=== PATIENT | female | born 1955 | race Caucasian/White ===

== ENCOUNTER 2016-12-21 14:44 | Emergency (ER) ==
[2016-12-21 14:48] VITALS: BP 121/79; TEMP 96.4; BMI 30.2
--- NOTE | 2016-12-21 15:08 | ED.PDOC ---
General ED Provider: Dr. YANNICK CUELLAR Chief Complaint: Rash Stated Complaint: rash Time Seen by Physician: 15:00 Mode of Arrival: Walk-In Information Source: Patient Exam Limitations: No limitations Primary [facility] T[facility] Documentation Reviewed and Agree: Yes Skin Complaint Exam - Skin Rash/Itching Complaint/Exam Onset/Duration: itching dorsal left hand Symptoms Are: Still present Initial Severity: Mild Current Severity: Mild (see photo) Location: left hand Aggravating: Reports: None Alleviating: Reports: None Differential Diagnoses: Allergic Reaction, Contact Dermatitis Review of Systems - Review Of Systems Constitutional: Reports: No symptoms Eyes: Reports: No symptoms Ears, Nose, Mouth, Throat: Reports: No symptoms Respiratory: Reports: No symptoms Cardiac: Reports: No symptoms GI: Reports: No symptoms : Reports: No symptoms Musculoskeletal: Reports: No symptoms Skin: Reports: Rash (left hand ) Neurological: Reports: No symptoms Endocrine: Reports: No symptoms Hematologic/Lymphatic: Reports: No symptoms All Other Systems: Reviewed and Negative Past Medical History - Past Medical History Previously Healthy: Yes Endocrine: Reports: None Cardiovascular: Reports: None Respiratory: Reports: None Hematological: Reports: None Gastrointestinal: Reports: None Genitourinary: Reports: None Neuro/Psych: Reports: None Musculoskeletal: Reports: None Cancer: Reports: None Last Menstrual Period: none - Surgical History General Surgical History: Reports: None - Family History Family History: Reports: None - Social History Smoking Status: Current every day smoker, Light tobacco smoker Hx Substance Use: No Alcohol Screening: None Physical Exam - Physical Exam Appearance: Well-appearing, No pain distress, Well-nourished Eyes: HAILEE, EOMI, Conjunctiva clear ENT: Ears normal, Nose normal, Oropharynx normal Respiratory: Airway patent, Breath sounds clear, Breath sounds equal, Respirations nonlabored Cardiovascular: RRR, Pulses normal, No rub, No murmur GI/: Soft, Nontender, No masses, Bowel sounds normal, No Organomegaly Musculoskeletal: Normal strength, ROM intact, No edema, No calf tenderness Skin: Warm, Dry (right hand dorsal right hand ) Neurological: Sensation intact, Motor intact, Reflexes intact, Cranial nerves intact, Alert, Oriented Psychiatric: Affect appropriate, Mood appropriate Critical Care Note - Critical Care Note Total Time (mins): 0 Course - Course Vital Signs: Temp Pulse Resp BP Pulse Ox 12/21/16 14:44 96.4 F L 74 18 121/79 96 Departure - Departure Time of Disposition: 15:07 (seen with trino at all times photos submitted ) Disposition: HOME SELF-CARE Discharge Problem: Pruritic rash, Cellulitis of right hand Instructions: Cellulitis (ED) Condition: Good Pt referred to PMD for follow-up: No Additional Instructions: Please call your Family Physician as soon as possible to schedule a follow-up appointment. Prescriptions: Amoxicillin/Potassium Clav [Augmentin 875-125 mg Tab] 1 tab PO Q12HR #14 tablet Allergies/Adverse Reactions: Allergies No Known Allergies Allergy (Verified 12/21/16 14:48) Home Medications: Ambulatory Orders Amoxicillin/Potassium Clav [Augmentin 875-125 mg Tab] 1 tab PO Q12HR #14 tablet 12/21/16 Disposition Discussed With: Patient
== END 2016-12-21 15:16 | disposition home or self-care (01) ==
LOC: ED 14:44
DX: R21 Rash and other nonspecific skin eruption (principal); L29.9 Pruritus, unspecified; L03.114 Cellulitis of left upper limb; F17.210 Nicotine dependence, cigarettes, uncomplicated
CPT/HCPCS: 99282

== ENCOUNTER 2017-01-11 14:18 | Outpatient (CLI) | END 2017-01-11 14:19 | disposition home or self-care (01) | LOC: LAB 14:18 | PROVIDERS: ATTEND Nurse Practitioner Family | DX: J01.90 Acute sinusitis, unspecified (principal) | CPT/HCPCS: 87651; 87880 ==

== ENCOUNTER 2017-08-26 05:35 | Emergency (ER) ==
[2017-08-26 05:35] VITALS: BMI 30.2
[2017-08-26 05:44] VITALS: BP 109/69; TEMP 96.8
[2017-08-26] MEDS ORDERED: SOLU-MEDROL 125 MG IM STA (06:11)
[2017-08-26] MEDS ORDERED: CLARITIN PO STA (06:12)
--- NOTE | 2017-08-26 06:15 | ED.PDOC ---
General ED Provider: Dr. CLAUDETTE RODRIGUEZ Chief Complaint: Rash Stated Complaint: Manisha is a 61 year old female who states that she has had a rash on the hands wrist neck and round her eyes for afew days. Started she thinks after getting into the weeds. Had similar symtoms last year which was sucessfully treated with steroids. Time Seen by Physician: 06:13 Mode of Arrival: Walk-In Information Source: Patient Exam Limitations: No limitations Primary Care [facility] and Triage Documentation Reviewed and Agree: Yes Skin Complaint Exam - Skin Rash/Itching Complaint/Exam Onset/Duration: 4 days Location: hands, wrist, Neck Periobital areas bilaterally Potential Exposures: Reports: Plants Prior Treatment: BENADRYL CREAM, CORTISONE CREAM, WARM RAGS Aggravating: Reports: None Alleviating: Denies: OTC creams/salves (tried BENADRYL CREAM, CORTISONE CREAM, WARM RAGS with no help), Cool compresses Associated Signs and Symptoms: Denies: Difficulty breathing, Fever, Chills Related History: Similar episode Skin Findings: Present: Urticaria Differential Diagnoses: Eczema, Poison [place] Review of Systems - Review Of Systems Constitutional: Reports: No symptoms Eyes: Reports: No symptoms Ears, Nose, Mouth, Throat: Reports: No symptoms Respiratory: Reports: No symptoms Cardiac: Reports: No symptoms GI: Reports: No symptoms : Reports: No symptoms Musculoskeletal: Reports: No symptoms Skin: Reports: Rash Neurological: Reports: Anxiety Endocrine: Reports: No symptoms Hematologic/Lymphatic: Reports: No symptoms All Other Systems: Reviewed and Negative Past Medical History - Past Medical History Previously Healthy: Yes Endocrine: Reports: None Cardiovascular: Reports: None Respiratory: Reports: None Hematological: Reports: None Gastrointestinal: Reports: None Genitourinary: Reports: None Neuro/Psych: Reports: None Musculoskeletal: Reports: None Cancer: Reports: None Last Menstrual Period: PT HAS HAD A HYSTERECTOMY - Surgical History General Surgical History: Reports: None - Family History Family History: Reports: None - Social History Smoking Status: Current every day smoker, Heavy tobacco smoker Hx Substance Use: No Alcohol Screening: None - Immunizations Tetanus Shot up to Date: Yes Physical Exam - Physical Exam Appearance: Obese Neck: Supple Respiratory: Airway patent, Breath sounds clear, Breath sounds equal, Respirations nonlabored Cardiovascular: RRR, Pulses normal, No rub, No murmur Skin: Warm, Dry Neurological: Sensation intact, Alert, Oriented Psychiatric: Anxious Critical Care Note - Critical Care Note Total Time (mins): 0 Course - Course Orders, Labs, Meds: Orders Category Date Time Status Loratadine [Claritin] MEDS 08/26/17 06:12 Stat 10 mg PO NOW STA Methylprednisolone Sod Succ/Pf [Solu-Medrol 125 mg] MEDS 08/26/17 06:11 Stat 125 mg IM ONCE STA Vital Signs: Temp Pulse Resp BP Pulse Ox 08/26/17 05:35 96.8 F L 80 16 109/69 95 Departure - Departure Time of Disposition: 06:18 Disposition: HOME SELF-CARE Discharge Problem: Contact dermatitis and eczema Eczema Qualifiers: Eczema type: unspecified Qualified Code(s): L30.9 - Dermatitis, unspecified Instructions: Eczema (ED), Contact Dermatitis (ED) Condition: Fair Pt referred to PMD for follow-up: Yes Additional Instructions: Take Medications as prescribed Follow up with PCP in 3 days Avoid poison IV/[place] Prescriptions: Methylprednisolone [Medrol Dosepak] 4 mg PO DIRECTED #1 pkg Allergies/Adverse Reactions: Allergies No Known Allergies Allergy (Verified 08/26/17 05:44) Home Medications: Ambulatory Orders Methylprednisolone [Medrol Dosepak] 4 mg PO DIRECTED #1 pkg 08/26/17 Disposition Discussed With: Patient
== END 2017-08-26 06:25 | disposition home or self-care (01) ==
LOC: ED 05:35
DX: L30.9 Dermatitis, unspecified (principal); F17.210 Nicotine dependence, cigarettes, uncomplicated
CPT/HCPCS: 96372; 99282

== ENCOUNTER 2018-03-28 09:44 | Observation (INO) | payer MEDICAID, OTHER ==
--- NOTE | 2018-03-28 11:48 | ED.PDOC ---
General ED Provider: Dr. YANNICK CUELLAR Chief Complaint: Chest Pain Stated Complaint: chest pain Time Seen by Physician: 10:00 Mode of Arrival: Walk-In Information Source: Patient Exam Limitations: No limitations Primary Care Provider: [facility] T[facility] Documentation Reviewed and Agree: Yes Reviewed sepsis parameters & appropriate labs ordered?: Yes System Inflammatory Response Syndrome: Not Applicable Sepsis Protocol: For patient's 13 years and over: Temp is 96.8 and below OR 101 and greater Pulse >90 BPM Resp >20/minute Acutely Altered Mental Status Are patient's symptoms suggestive of a new infection, such as: -Pneumonia -Skin, Soft Tissue -Endocarditis -UTI -Bone, Joint Infection -Implantable Device -Acute Abdominal Infection -Wound Infection -Meningitis -Blood Stream Catheter Infection -Unknown System Inflammatory Response Syndrome: Not Applicable Cardiovascular Complaint Exam - Chest Pain Complaint/Exam Onset: Gradual Duration: 2 days Symptoms Are: Still present Timing: Intermittent Initial Severity: Moderate Current Severity: Moderate Location: Reports: Midsternal Pain Radiates: Reports: Back Character: Reports: Dull, Aching Aggravating: Reports: None Alleviating: Reports: None Associated Signs and Symptoms: Reports: Back pain. Denies: Diaphoresis, Nausea , Vomiting, Fever, Palpitations, Cough, Hemoptysis, Abdominal pain, Dizziness, Short of air, Calf pain, Calf swelling Related History: Reports: Similar episode Related Surgical History: Reports: None History of Healthcare-Acquired Pneumonia: Reports: No AMI/ACS Risk Factors: Reports: None TAD Risk Factors: Reports: None Pulmonary Embolism Risk Factors: Reports: None Prior Care for this Complaint: No Recent Stress Test: No Recent Echo/LV Function: No JVD Present: No Subcutaneous Emphysema Present: No Diminshed Breath Sounds: No Reproducible Chest Wall Pain: No Bilateral Pulses Present: No Unequal Pulses Noted: No If Risk Factors for AMI/ACS Consider: EKG, Cardiac Enzymes Differential Diagnoses: ACS, Stable Angina Quality Indicators For Acute RI or Cardiac Chest Pain: EKG in 10min. Review of Systems - Review Of Systems Constitutional: Reports: No symptoms Eyes: Reports: No symptoms Ears, Nose, Mouth, Throat: Reports: No symptoms Respiratory: Reports: No symptoms Cardiac: Reports: Chest pain GI: Reports: No symptoms : Reports: No symptoms Musculoskeletal: Reports: No symptoms Skin: Reports: No symptoms Neurological: Reports: No symptoms Endocrine: Reports: No symptoms Hematologic/Lymphatic: Reports: No symptoms All Other Systems: Reviewed and Negative Past Medical History - Past Medical History Previously Healthy: Yes Endocrine: Reports: None Cardiovascular: Reports: None Respiratory: Reports: None Hematological: Reports: None Gastrointestinal: Reports: None Genitourinary: Reports: None Neuro/Psych: Reports: None Musculoskeletal: Reports: None Cancer: Reports: None Last Menstrual Period: unknown - Surgical History General Surgical History: Reports: None - Family History Family History: Reports: None - Social History Smoking Status: Current every day smoker, Heavy tobacco smoker Hx Substance Use: No Alcohol Screening: None Physical Exam - Physical Exam Appearance: Well-appearing, No pain distress, Well-nourished Eyes: HAILEE, EOMI, Conjunctiva clear ENT: Ears normal, Nose normal, Oropharynx normal Respiratory: Airway patent, Breath sounds clear, Breath sounds equal, Respirations nonlabored Cardiovascular: RRR, Pulses normal, No rub, No murmur GI/: Soft, Nontender, No masses, Bowel sounds normal, No Organomegaly Musculoskeletal: Normal strength, ROM intact, No edema, No calf tenderness Skin: Warm, Dry, Normal color Neurological: Sensation intact, Motor intact, Reflexes intact, Cranial nerves intact, Alert, Oriented Psychiatric: Affect appropriate, Mood appropriate Interpretation - Hris Administrator Rate: Normal Rhythm: Sinus Ectopy: None - EKG Interpretation Rate: Normal Rhythm: Sinus Ectopy: None [place]: NL ST Segment: Normal Re-Evaluation - Re-Evaluation Time of Re-Evaluation: 10:20 Status: Improved Vital Signs Stable: Yes Pain Level: 0 Appearance: NAD Lungs: Clear Skin: Warm and Dry Neuro: Alert and Oriented X3 CV: RRR - Re-Evaluation Time of Re-Evaluation: 11:48 Status: Improved Vital Signs Stable: Yes Pain Level: 0 Appearance: NAD Skin: Warm and Dry Neuro: Alert and Oriented X3 CV: RRR Critical Care Note - Critical Care Note Total Time (mins): 0 Course - Course Hematology/Chemistry: 03/28/18 09:55 03/28/18 09:55 Orders, Labs, Meds: Lab Review 03/28/18 03/28/18 03/28/18 09:55 09:55 09:55 WBC 8.89 RBC 4.54 Hgb 14.8 Hct 41.8 MCV 92.1 MCH 32.6 H MCHC 35.4 RDW Coeff of Otoniel 13.2 Plt Count 205 Immature Gran % (Auto) 0.2 Neut % (Auto) 58.4 Lymph % (Auto) 34.1 Clay % (Auto) 5.4 Eos % (Auto) 1.6 Baso % (Auto) 0.3 Immature Gran # (Auto) 0.0 Neut # (Auto) 5.2 Lymph # (Auto) 3.0 Clay # (Auto) 0.5 Eos # (Auto) 0.1 Baso # (Auto) 0.0 PT 10.4 INR 1.04 APTT 26.9 Sodium 139 Potassium 4.0 Chloride 109 H Carbon Dioxide 21 L Anion Gap 13.0 BUN 21 H Creatinine 0.75 Estimated GFR (MDRD) 78.00 BUN/Creatinine Ratio 28.00 Glucose 132 H Calcium 8.9 Total Bilirubin 0.4 AST 13 L ALT 10 L Alkaline Phosphatase 78 Total Creatine Kinase 118 CK-MB (CK-2) 2.2 CK-MB (CK-2) % 1.80893 Troponin I < 0.0100 Total Protein 6.5 Albumin 3.4 Globulin 3.1 Albumin/Globulin Ratio 1.10 Orders Category Date Time Status EKG-(ED ONLY) Stat CARDIO 03/28/18 10:02 Completed NPO REMINDER: IMAGING ONCE CARE 03/28/18 10:03 Completed ED IV/MEDIPORT/POWERPORT .ONCE EMERGENCY 03/28/18 10:02 Active CBC W/ AUTO DIFF Stat LAB 03/28/18 09:55 Completed COMPREHENSIVE METABOLIC PANEL Stat LAB 03/28/18 09:55 Completed CREATINE KINASE Stat LAB 03/28/18 09:55 Completed PARTIAL THROMBOPLASTIN TIME Stat LAB 03/28/18 09:55 Completed PT WITH INR Stat LAB 03/28/18 09:55 Completed TROPONIN I Stat LAB 03/28/18 09:55 Completed 0.9 % Sodium Chloride [Saline Flush] MEDS 03/28/18 10:02 Active 1 syr IVF PRN PRN CTA ANGIO CHEST Stat RADS 03/28/18 10:02 Taken Medications Generic Name Dose Route Start Last Admin Trade Name Freq PRN Reason Stop Dose Admin Sodium Chloride 1 syr 03/28/18 10:02 Saline Flush IVF PRN PRN To flush IV Vital Signs: Temp Pulse Resp BP Pulse Ox 03/28/18 09:45 97.1 F L 69 20 130/72 99 LJ Risk Score LJ Risk Score: Risk Score Odds of by 30D 0 0.1 (0.1-0.2) 1 0.3 (0.2-0.3) 2 0.4 (0.3-0.5) 3 0.7 (0.6-0.9) 4 1.2 (1.0-1.5) 5 2.2 (1.9-2.6) 6 3.0 (2.5-3.6) 7 4.8 (3.8-6.1) Departure - Departure Time of Disposition: 11:48 Disposition: ADMITTED INPATIENT Discharge Problem: Chest pain Instructions: Chest Pain (ED), Angina (DC) Condition: Good Pt referred to PMD for follow-up: Yes IPMP verified?: No Additional Instructions: Please call your Family Physician as soon as possible to schedule a follow-up appointment. Allergies/Adverse Reactions: Allergies No Known Allergies Allergy (Verified 03/28/18 09:57) Home Medications: Ambulatory Orders 1 [No Reported Medications] 03/28/18 Disposition Discussed With: Patient
--- NOTE | 2018-03-28 12:01 | CT ---
EXAM: CT Angiogram Chest. HISTORY: Chest pain. COMPARISON: 12/18/2015. TECHNIQUE: Multiple axial images of the chest were obtained following intravenous administration of 100 mL of Omnipaque 350, low osmolar. Images were reformatted in the sagittal and coronal plane. 3- D and maximum intensity projection reformatted images were created on an independent workstation. FINDINGS: Nonenlarged mediastinal and hilar lymph nodes present. Heart size is normal. No pericard ial effusion identified. Atherosclerotic calcifications are present. No pulmonary arterial filling defects are seen. The lungs are clear without pleural effusion or pneu mothorax. Limited images of the upper abdomen demonstrate no significant abnormality. Degenerative changes pre sent in the spine. IMPRESSION: No evidence for pulmonary embolus or other acute abnormality of the chest.
[2018-03-28] MEDS ORDERED: TORADOL IM STA (12:41)
[2018-03-28 14:03] VITALS: BMI 30.5
[2018-03-28] MEDS: SODIUM CHLORIDE 1,000 ML IV SCH (14:25)
[2018-03-29] MEDS: SODIUM CHLORIDE 1,000 ML IV SCH (03:35)
[2018-03-29] MEDS ORDERED: TORADOL IM STA (04:46)
--- NOTE | 2018-03-29 10:23 | STRESSECHO ---
Date of Test: 03/29/18 Ordering Physician: DR. MARIA DE JESUS JOSEPH Occupation: PEDIATRIC PHYSICAL THERAPIST Reason for Exam: CHEST PAIN Smoking History: 10 PACK YEARS Height: 61" Weight: 161 LBS Current Medications: NAPROXEN Resting EKG: SINUS RHYTHM/ NO ACUTE CHANGES Target Heart Rate: 133/157 S-T SEGMENT STAGE MPH/GRADE HEART RATE BPM BLOOD PRESSURE MMHG RHYTHM +/- ELEVATION DEPRESSION SYMPTOMS,COMMENTS AT REST 54 118/80 SR X NO SYMPTOMS 1 1.7/10% 100 128/76 SR X NO SYMPTOMS 2 2.5/12% 116 142/76 SR X NO SYMPTOMS 3 3.4/14% 4 4.2/16% 5 5.0/18% Immediately After 133 SR X SHORT OF AIR Minutes Post Exercise 4:00 68 110/80 SR X SHORT OF AIR Minutes Post Exercise DURATION OF EXERCISE: 6 MIN 46 SEC MAXIMUM HEART RATE REACHED: 133 REASON FOR TERMINATION: SHORT OF AIR 97% OXYGEN SATURATION WITH EXERCISE ON ROOM AIR METS: 9.3 INTERPRETATION: 1. NO EVIDENCE OF ISCHEMIA BY ST-T WAVE 2. NO CHEST PAIN OR CHEST DISCOMFORT 3. NO ARRHYTHMIAS 4. BLOOD PRESSURE RESPONSE: NORMAL NORMAL LEFT VENTRICULAR CONTRACTILITY--RESTING AND POST EXERCISE MTDD
--- NOTE | 2018-03-29 10:40 | ECHOSTRESS ---
Date of Exam: 03/29/18 Ordering Physician: DR. MARIA DE JESUS JOSEPH Reason for Echo: CHEST PAIN, STRESS TEST M-Mode Normal Adult Results LV Dimensions Normal Adult Results AoV Opening excursions >1.6 LVEDD-base- 3.5-5.8 Ao root dimensions 2.0-3.7 LVESD-base- 3.1-4.6 L. Atrium dimensions 1.9-3.8 Post. Wall thickness 0.8-1.1 IV septum (thickness) 0.7-1.2 Post. Wall excursion 0.72-1.3 Septal motion Systolic motion R. Ventricular cavity 1.5-2.0 LVEF 60% Paradoxical septal wall motion 2-D: NORMAL LEFT VENTRICULAR CONTRACTILITY--RESTING AND POST EXERCISE M-MODE: MV: AV: TV: PV: CHAMBER SIZE: WALL MOTION: NORMAL LEFT VENTRICULAR CONTRACTILITY--RESTING AND POST EXERCISE PERICARDIUM: INTERPRETATION: 1. NORMAL LEFT VENTRICULAR CONTRACTILITY--RESTING AND POST EXERCISE MTDD
[2018-03-29 11:10] VITALS: BP 100/68; TEMP 98.1
--- NOTE | 2018-03-29 13:51 | HP ---
DATE OF SERVICE: CHIEF COMPLAINT/HISTORY OF PRESENT ILLNESS: Left sided chest pain, Heaviness upper chest radiating to the left arm, sharp type, hurting to breathe and even hurts on the back side. No tingling or numbness. Not aggravated with exertion or delude. The patient came to see Dr. Moreno. EKG normal sinus. Chest x-ray did not show any infiltrate and first set of cardiac enzymes are negative. In review of the patient's chest pain and age with family history of coronary artery disease the patient was admitted to the observation to rule out acute coronary syndrome. REVIEW OF SYSTEMS: CONSTITUTIONAL: No fever, no chills. Weakness and tiredness. HEENT: Normal. ENDOCRINE: No weight gain; no weight loss. CVS: Chest pain. No PND, no orthopnea. Shortness of breath. No PND, no orthopnea. RESPIRATORY: No cough, no congestion. No hemoptysis. GI: No nausea, no vomiting. No abdominal pain. No melena. : No hematuria. No polyuria. MUSCULOSKELETAL: No joint swelling. PSYCHIATRIC: Not anxious. No depression. No suicidal thoughts. No homicidal thoughts. SKIN: Intact, no open lesions. PAST MEDICAL HISTORY: History of CVA Peripheral neuropathy Nicotine use PAST SURGICAL HISTORY: Tonsillectomy Hysterectomy PERSONAL HISTORY: The patient does smoke, no alcohol and no drugs. 3, Para 3 FAMILY HISTORY: Heart problems MEDICATIONS: Naproxen ALLERGIES: No known allergies PHYSICAL EXAMINATION: HEENT: Atraumatic, normocephalic. No scleral icterus. Pallor positive. Mucosa dry. NECK: Supple. No JVD, no bruit. No lymphadenopathy. No thyromegaly. HEART: S1, S2 normal. No murmur. No cyanosis or clubbing. No ascites. LUNGS: Clear to auscultation. No rales or rhonchi. ABDOMEN: Soft, nontender. Bowel sounds are active. No CVA tenderness. No rigidity or guarding. EXTREMITIES: No pedal edema. No cyanosis or clubbing MUSCULOSKELETAL: Normal joints, no swelling. NEUROLOGIC: The patient is alert and oriented. SKIN: Intact; no open lesions. LYMPHATIC: No lymph nodes palpable. LABS: Sodium 139, potassium 4.0, chloride 109, bicarb 21, BUN 21, creatinine 0.75 and glucose 132. WBC 8.89, hgb 14.8, cht 41.8, plt count 205. INR 1.04 ASSESSMENT: 1. Chest pain rule out ACS, Family history of coronary artery disease 2. Post menopausal PLAN: 1. Admit patient for the observation 2. Echocardiogram and stress echo 3. TSH, Lipids and A1c TIME SPENT: MORE THAN 70 minutes MTDD
--- NOTE | 2018-05-19 13:06 | DS ---
DATE OF SERVICE: 03/29/18 FINAL DIAGNOSIS: 1. Chest pain noncardiac 2. COPD 3. Bronchitis 4. Pleurisy 5. Peripheral neuropathy 6. Nicotine use 7. Family History of coronary artery disease DISCHARGE INSTRUCTIONS: Discharge the patient home. Followup in the [facility] with in 5-[address] Jackson. Advised to quit smoking. MEDICATIONS AT DISCHARGE: Aleve Prednisone Flexeril NEW PRESCRIPTIONS: Flexeril 5mg one tablet two times a day Prednisone 10mg twice a day DIET INSTRUCTIONS: Cardiac and healthy diet ACTIVITY: As tolerated DISEASE SPECIFIC EDUCATION: Pneumonia COPD Pleurisy been discussed and verbalized understanding. HOSPITAL COURSE: Tamiko Mckeon 61 year old female with a history of COPD, nicotine use and family history of coronary artery disease started having the mid chest pain left sided and the left mid back. Given her history the patient was admitted to the hospital for observation to rule out acute coronary syndrome. Asked the Dr. Izaguirre to do the stress test and echocardiogram which both came out to be negative. The patient was given steroids and muscle relaxant. Did help the patient relive the pain. Chest x-ray negative. BUN and creatinine stable. TSH level and Lipids are normal. By the next day the patient was feeling good and all the tests were negative. CT chest with PE protocol was negative. The patient is being discharged home. TIME SPENT: MORE THAN 65 MINUTES MTDD
== END 2018-03-29 14:05 | disposition home or self-care (01) ==
LOC: EDBD → ED 09:44 → MEDSURG B 12:40 → INTOOBSV 12:40
PROVIDERS: ADMIT Emergency Medicine; ATTEND Emergency Medicine
DX: M54.9 Dorsalgia, unspecified (principal); J44.9 Chronic obstructive pulmonary disease, unspecified; J20.9 Acute bronchitis, unspecified; Z72.0 Tobacco use; R09.1 Pleurisy; G62.9 Polyneuropathy, unspecified
CPT/HCPCS: 36415; 80053; 80061; 82550; 82553; 83036; 84443; 84484; 85025; 85610; 85730; 93005; 93010; 96360; 96361; 96372; 97802; 99217; 99220; 99284

== ENCOUNTER 2018-04-19 15:48 | Outpatient (CLI) ==
--- NOTE | 2018-04-19 16:20 | DI ---
EXAM: Radiographs, left shoulder HISTORY: Left shoulder pain. COMPARISON: None available. TECHNIQUE: Three views. FINDINGS: Bone mineralization is decreased. No fracture or dislocation identified. There is modera te joint space narrowing at the acromioclavicular joint. Moderate marginal osteophyte formation seen at the acromioclavicular glenohumeral joints. Calcification seen in the distal rotator cuff tendon with cystic change of the greater tuberosity of the humerus. No erosions are seen. Soft tissues are unremarkable. IMPRESSION: 1. Moderate osteoarthritis. 2. Findings consistent with rotator cuff pathology.
--- NOTE | 2018-04-19 16:21 | DI ---
Exam: T views of the thoracolumbar spine. Comparison: CT thorax performed 01/31/2098. Reason for exam: Dorsalgia unspecified. FINDINGS: No acute vertebral body height loss is seen. There is multilevel degenerative disease with interverte bral body disc space height narrowing and osteophyte formation with facet hypertrophy. Grade 1 anterior listhesis of L4 on L5. There is relative preservation of the lumbar lordotic curve with mild scoliotic disease. The imaged osseous structures appear diffusely demineralized. Impression: 1. No acute fracture is seen within the lumbar spine. 2. Grade 1 anterior listhesis of L4 on L5. 3. Multilevel degenerative disease with intervertebral body disc space height narrowing, osteophyte formation, and facet hypertrophy. If clinical concern exists for radiculopathy or myelopathy, MRI ma y be performed for further characterization.
== END 2018-04-19 15:49 | disposition home or self-care (01) ==
LOC: RAD 15:48
PROVIDERS: ATTEND Emergency Medicine
DX: M25.512 Pain in left shoulder (principal); M54.6 Pain in thoracic spine